=== PATIENT | male | born 1995 | race African-American/Black ===

== ENCOUNTER 2020-06-16 09:14 | Emergency (ER) | payer MEDICAID ==
[~2020-06-16] VITALS: Ht 188 cm; Wt 66.0 kg
[2020-06-16 10:24] VITALS: BP 128/78
[2020-06-16] MEDS ORDERED: KETOROLAC 30MG/ML VIAL IM ONE (10:30)
== END 2020-06-16 11:35 | disposition home or self-care (01) ==
LOC: EDBD 09:29 → ER 09:29
DX: M54.5 Low back pain (principal); R51.9 Headache, unspecified
CPT/HCPCS: 72100; 96372; 99283; J1885; Z7610